=== PATIENT | female | born 1990 | race Caucasian/White ===

== ENCOUNTER 2018-08-12 19:31 | Emergency (ER) | payer OTHER ==
[~2018-08-12] VITALS: Ht 170.2 cm; Wt 87.6 kg
[2018-08-12 19:45] VITALS: BP 131/92
--- NOTE | 2018-08-12 19:48 | NUR ---
yokasta krishna given dc instruction with prescription at triage pt will be dc'd from [facility]
== END 2018-08-12 20:07 | disposition home or self-care (01) ==
LOC: ED 20:01
DX: K08.89 Other specified disorders of teeth and supporting structures (principal)
CPT/HCPCS: 99283